=== PATIENT | male | born 1970 | race Caucasian/White ===

== ENCOUNTER 2025-05-25 12:56 | Emergency (ER) | payer BC, SELFPAY ==
[2025-05-25 12:59] VITALS: BP 157/100
[2025-05-25 13:07] VITALS: BP 153/103
--- NOTE | 2025-05-25 13:16 | ED.GENMED ---
History of Present Illness
<Tobias Atkinson DO - Last Filed: 05/25/25 13:18>
General
Chief Complaint: Abdominal Symptoms
Time Seen by Provider: 05/25/25 13:16
<Rosio To DO, Resident - Last Filed: 05/25/25 15:49>
General
Source: patient
Exam Limitations: none
History of Present Illness
History of Present Illness:
Patient is a 54-year-old male past medical history of diverticulitis presenting with left lower quadrant abdominal discomfort. Patient was treated for diverticulitis in March. Patient feels as though his symptoms did not completely resolve.
Patient saw his PCP who prescribed him dicyclomine. Patient has been taking it on and off for the last 3 weeks, with little to no relief. Patient describes the pain as a cramp on his left side as mild and comes and goes. Patient describes his
abdomen as 'tired'. Patient is concerned that his diverticulitis did not completely resolve and would like reimaging. Patient denies changes in bowel movements including diarrhea all other ROS.
Past History
<Tobias Atkinson DO - Last Filed: 05/25/25 13:18>
Past History
ED Past Medical History: GERD and Other (diverticulitis)
ED Past Surgical History: None
Social History
Tobacco: Non-smoker
Living: with family
Review of Systems
<Rosio To DO, Resident - Last Filed: 05/25/25 15:49>
Review of Systems
All Other Systems: ROS reviewed and negative except as documented in HPI and ROS
Constitutional: Reports no symptoms
EENT: Reports no symptoms
Respiratory: Reports no symptoms
Cardiac: Reports no symptoms
ABD/GI: Reports abdominal pain (LLQ)
: Reports no symptoms
Musculoskeletal: Reports no symptoms
Skin: Reports no symptoms
Neurological: Reports no symptoms
Endocrine: Reports no symptoms
Hematologic/Lymphatic: Reports no symptoms
Psychiatric: Reports no symptoms
Phy Exam
<Rosio To DO, Resident - Last Filed: 05/25/25 15:49>
General Physical Exam
General Presentation: well appearing and no apparent distress
General age: appears stated age
General Skin: warm and dry
General Habitus: normal
General Mental: alert
Cardiovascular Exam
Cardiovascular Exam: regular rate/rhythm
Heart Sounds: normal
Pulmonary Exam
Pulmonary Exam: lungs clear and no respiratory distress
Gastrointestinal Exam
Gastrointestinal Exam: normal bowel sounds, soft and tender (Very mild tenderness appreciated in lower left quadrant)
Neurological Exam
Neurological Exam: alert and oriented x3
Musculoskeletal Exam
Musculoskeletal Exam: full ROM
Skin Exam
Skin Exam: normal color and warm/dry
Psychiatric Exam
Psychiatric Exam: normal mood/affect
Course
<Tobias Atkinson DO - Last Filed: 05/25/25 13:18>
Orders/Labs/Results
Orders:
Orders
05/25/25 13:17
Urinalysis Reflex To Culture Urgent
Date Specimen was Collected: 05/25/25
Time Specimen was Collected: 15:10
05/25/25 13:35
CT Abd/pelvis W Iv Cont Urgent
Comment:
Reason For Exam: L pain concern for diverticulitis
05/25/25 14:23
Complete Blood Count/With Diff Urgent
Comprehensive Metabolic Panel Urgent
Lipase Urgent
05/25/25 15:37
Amoxicillin 875 mg/Clav 125 mg [Augmentin 875 mg/125 mg] 1 tablet PO NOW STA
Abnormal Lab Results
05/25/25
14:23
MCH 31.7 H pg
(27.0-31.0)
Immature Gran % 0.6 H %
(0-0.5)
Calcium 10.3 H mg/dl
(8.4-10.2)
Total Protein 8.7 H g/dl
(6.3-8.2)
Albumin 5.3 H g/dl
(3.5-5.0)
05/25/25 14:23
05/25/25 14:23
Vital Signs
Initial and Last Documented VS:
Initial Vital Signs
Temp Pulse Resp BP Pulse Ox
98.6 F 91 17 157/100 99
05/25/25 12:59 05/25/25 12:59 05/25/25 12:59 05/25/25 12:59 05/25/25 12:59
Last Documented Vital Signs
Temp Pulse Resp BP Pulse Ox
98.6 F 91 17 157/100 99
05/25/25 12:59 05/25/25 12:59 05/25/25 12:59 05/25/25 12:59 05/25/25 13:18
<Rosio To DO, Resident - Last Filed: 05/25/25 15:49>
Orders/Labs/Results
Orders:
Orders
05/25/25 13:17
Urinalysis Reflex To Culture Urgent
Date Specimen was Collected: 05/25/25
Time Specimen was Collected: 15:10
05/25/25 13:35
CT Abd/pelvis W Iv Cont Urgent
Comment:
Reason For Exam: L pain concern for diverticulitis
05/25/25 14:23
Complete Blood Count/With Diff Urgent
Comprehensive Metabolic Panel Urgent
Lipase Urgent
05/25/25 15:37
Amoxicillin 875 mg/Clav 125 mg [Augmentin 875 mg/125 mg] 1 tablet PO NOW STA
Abnormal Lab Results
05/25/25
14:23
MCH 31.7 H pg
(27.0-31.0)
Immature Gran % 0.6 H %
(0-0.5)
Calcium 10.3 H mg/dl
(8.4-10.2)
Total Protein 8.7 H g/dl
(6.3-8.2)
Albumin 5.3 H g/dl
(3.5-5.0)
05/25/25 14:23
05/25/25 14:23
Vital Signs
Initial and Last Documented VS:
Initial Vital Signs
Temp Pulse Resp BP Pulse Ox
98.6 F 91 17 157/100 99
05/25/25 12:59 05/25/25 12:59 05/25/25 12:59 05/25/25 12:59 05/25/25 12:59
Last Documented Vital Signs
Temp Pulse Resp BP Pulse Ox
98.6 F 91 17 157/100 99
05/25/25 12:59 05/25/25 12:59 05/25/25 12:59 05/25/25 12:59 05/25/25 13:18
<Rosio To DO, Resident - Last Filed: 05/25/25 15:49>
MDM/Problems Addressed
Differential Diagnosis Includes:
Diverticulitis, diverticulosis
MDM/Problems Addressed:
Labs unremarkable
CT AP reveals mild diverticulitis in the left pelvis, near the junction of the descending colon and the sigmoid colon. No evidence for abscess. No evidence for free intraperitoneal air.
Will discharge patient home with Augmentin.
<Tobias Atkinson DO - Last Filed: 05/25/25 13:18>
*Pulse Oximetry
SaO2: 99
Oxygen Mode of Delivery: Room air
<Rosio To DO, Resident - Last Filed: 05/25/25 15:49>
*Pulse Oximetry
Patient hypoxic: no
*Critical Care Note
Total Time (30-74mins, 75-104mins- exclusive of procedures): Not Applicable
ED Attending Note
<Tobias Atkinson, DO - Last Filed: 05/25/25 13:18>
-
Portions of this chart may have been created with voice recognition software.� Occasional wrong word or��sound alike� substitutions may have occurred due to the inherent limitations of voice recognition software.
Discharge Plan
Departure
Patient Disposition: Home (Routine Discharge)
Date of Disposition: 05/25/25
Time of Disposition: 15:48
Patient with high blood pressure during this ER visit?: Yes
Discharge Problem:
Diverticulitis
Instructions: Diverticulitis, BLOOD PRESSURE
Prescriptions:
New
amoxicillin-pot clavulanate 875-125 mg tablet
1 tab PO BID Qty: 19 0RF
No Action
sertraline 25 MG tablet
25 mg PO DAILY
Prilosec
PO BID
hydrocodone-acetaminophen 5 MG/500 MG tablet
1 tab PO Q4HPRN PRN (Reason: pain) Qty: 30 0RF
amoxicillin-pot clavulanate 875 MG/125 MG tablet
1 tab PO Q12 Qty: 14 0RF
ibuprofen 600 MG tablet
600 mg PO Q6 PRN (Reason: pain) Qty: 20 0RF
Referrals:
Contreras Harrington MD [Family Provider, Family Practice]
Activity Restrictions/Additional Instructions:
Please take Augmentin 1 pill twice daily with a meal for 10 days. Please follow up with you GI and PCP.
Interventions
Interventions:
*Risk Screen - Suicide Last Done: 05/25/25 13:00
*General Assessment Last Done: 05/25/25 13:00
*Neglect/Abuse Screening Last Done: 05/25/25 13:00
*ED COVID-19 Vaccine History Last Done: 05/25/25 13:00
Discharge Date and Time
Print Language: LITHUANIAN
[2025-05-25 14:00] VITALS: BP 139/106
[2025-05-25 14:17] VITALS: BMI 28.5
[2025-05-25 14:36] LABS: Hematocrit 43.4 % (39.0-52.0); Hemoglobin 15.3 g/dL (13.0-18.0); Mean Corp Hgb Conc. 35.3 g/dL (33.0-37.0); Mean Corpuscular Volume 89.9 fL (80.0-94.0); Nucleated Red Blood Cells % 0 % (-); Platelet Count 254 10^3/uL (130-400); Red Cell Dist. Width 12.6 % (11.5-14.5)
[2025-05-25 14:59] LABS: ALT (SGPT) 40 U/L (0-50); AST (SGOT) 27 U/L (17-59); Albumin 5.3 g/dl (3.5-5.0); Alkaline Phosphatase 71 U/L (38-126); Blood Urea Nitrogen 15 mg/dl (9-20); Calcium 10.3 mg/dl (8.4-10.2); Carbon Dioxide 26 mmol/L (22-30); Chloride 106 mmol/L (98-107); Estimated Creatinine Clearance 103 ml/min; Glucose 97 mg/dl (70-99); Lipase 67 U/L (23-300); Potassium 5.0 mmol/L (3.5-5.1); Sodium 139 mmol/L (135-145); Total Protein 8.7 g/dl (6.3-8.2); eGFR > 60.00
[2025-05-25] MEDS: AUGMENTIN 875 MG/125 MG 1 TABLET PO (15:45)
[2025-05-25 16:03] LABS: Urine Character Clear (Clear)
[2025-05-25 16:22] LABS: Urine Red Blood Cell 0-2 /HPF (0-2); Urine Squamous Cell 0-2 /LPF (Few); Urine White Cell 0-2 /HPF (0-5)
== END 2025-05-25 16:51 | disposition home or self-care (01) ==
LOC: EMR 12:56
PROVIDERS: EMERGENCY PHYSICIAN Emergency Medicine; FAMILY PHYSICIAN Family Medicine
DX: K57.32 Diverticulitis of large intestine without perforation or abscess without bleeding (principal); K21.9 Gastro-esophageal reflux disease without esophagitis
CPT/HCPCS: 99284; 74177; 80053; 81003; 81015; 83690; 85025; Q9967

== ENCOUNTER 2025-06-24 12:03 | Emergency (ER) | payer BC, SELFPAY ==
[2025-06-24 12:05] VITALS: BP 146/94
[2025-06-24 12:56] LABS: Hematocrit 42.0 % (39.0-52.0); Hemoglobin 14.7 g/dL (13.0-18.0); Mean Corp Hgb Conc. 35.0 g/dL (33.0-37.0); Mean Corpuscular Volume 89.6 fL (80.0-94.0); Nucleated Red Blood Cells % 0 % (-); Platelet Count 241 10^3/uL (130-400); Red Cell Dist. Width 12.7 % (11.5-14.5)
[2025-06-24 12:59] VITALS: BMI 29.5
--- NOTE | 2025-06-24 13:06 | ED.GENMED ---
History of Present Illness
General
Chief Complaint: Abdominal Pain
Source: patient
Exam Limitations: none
Time Seen by Provider: 06/24/25 12:56
Nursing documentation reviewed up to this point in time: agreed with
History of Present Illness
History of Present Illness:
54-year-old male presents with very mild abdominal symptoms no nausea no vomitingSimilar to when he had diverticulitis before once required Cipro Flagyl another time took Augmentin, No fevers no dysuria no frequency again symptoms are very mild is
concerned this could still be going on think he needs a CAT scan
Past History
Past History
ED Past Medical History: GERD and Other (diverticulitis)
ED Past Surgical History: None
Social History
Tobacco: Non-smoker
Living: with family
Review of Systems
Review of Systems
All Other Systems: ROS reviewed and negative except as documented in HPI and ROS
Constitutional: Denies fever or fatigue
EENT: Reports no symptoms
Respiratory: Reports no symptoms
Cardiac: Reports no symptoms
ABD/GI: Reports abdominal pain (very mild); Denies nausea or vomiting
Phy Exam
Physical Exam
Physical Exam:
Physical Exam
General: no apparent distress, not acutely ill
Neck: ncat
Heart: s1/s2 regular rate and rhythm, no murmur. equal radial pulses.
Lungs: no acute respiratory distress. clear bilaterally
Abdomen: not tender.
Neuro: alert and oriented. no focal neurological deficits
Skin: no rash
Psychiatric: well kept. interactive and cooperative
Extremities: no edema.
Course
Orders/Labs/Results
Orders:
Orders
06/24/25 12:49
Complete Blood Count/With Diff Urgent
Comprehensive Metabolic Panel Urgent
06/24/25 13:05
CT Abd/pelvis W Iv Cont Urgent
Comment:
Reason For Exam: abd pain diverticulitis
Abnormal Lab Results
06/24/25
12:49
WBC 4.7 L 10^3/uL
(4.8-10.8)
RBC 4.69 L 10^6/uL
(4.70-6.10)
MCH 31.3 H pg
(27.0-31.0)
06/24/25 12:49
06/24/25 12:49
Vital Signs
Initial and Last Documented VS:
Initial Vital Signs
Temp Pulse Resp BP Pulse Ox
98.3 F 89 16 146/94 698
06/24/25 12:06/24/25 12:05 06/24/25 12:05 06/24/25 12:05 06/24/25 12:05
Last Documented Vital Signs
Temp Pulse Resp BP Pulse Ox
98.3 F 89 16 87/59 99
06/24/25 12:05 06/24/25 12:05 06/24/25 12:05 06/24/25 14:00 06/24/25 14:00
MDM/Problems Addressed
Differential Diagnosis Includes:
Diverticulitis nonspecific abdominal pain appendicitis psychosomatic
Chronic conditions affecting care:
Abdominal symptoms mild
*Radiology
Radiology exam reviewed: radiology read reviewed
*Pulse Oximetry
SaO2: 97
Oxygen Mode of Delivery: Room air
Patient hypoxic: no
*Critical Care Note
Total Time (30-74mins, 75-104mins- exclusive of procedures): Not Applicable
Update Note
Update Note:
[address] noted labs noted I do not see any indication for more antibiotics
ED Attending Note
-
Portions of this chart may have been created with voice recognition software.� Occasional wrong word or��sound alike� substitutions may have occurred due to the inherent limitations of voice recognition software.
Discharge Plan
Departure
Patient Disposition: Home (Routine Discharge)
Date of Disposition: 06/24/25
Time of Disposition: 15:58
Patient with high blood pressure during this ER visit?: No
Condition: Good
Discharge Problem:
Normal abdominal exam
Instructions: Spring diet
Prescriptions:
No Action
sertraline 25 MG tablet
25 mg PO DAILY
Prilosec
PO BID
hydrocodone-acetaminophen 5 MG/500 MG tablet
1 tab PO Q4HPRN PRN (Reason: pain) Qty: 30 0RF
amoxicillin-pot clavulanate 875 MG/125 MG tablet
1 tab PO Q12 Qty: 14 0RF
ibuprofen 600 MG tablet
600 mg PO Q6 PRN (Reason: pain) Qty: 20 0RF
amoxicillin-pot clavulanate 875-125 mg tablet
1 tab PO BID Qty: 19 0RF
Referrals:
Contreras Harrington MD [Family Provider, Family Practice]
Interventions
Interventions:
*Risk Screen - Suicide Last Done: 06/24/25 12:05
*Neglect/Abuse Screening Last Done: 06/24/25 12:05
KF-Zymffg-Rbkokwhutd Assessment Last Done: 06/24/25 12:59
Discharge Date and Time
Print Language: YAKUT
[2025-06-24 13:13] VITALS: BP 132/92
[2025-06-24 13:20] LABS: ALT (SGPT) 32 U/L (0-50); AST (SGOT) 28 U/L (17-59); Albumin 5.0 g/dl (3.5-5.0); Alkaline Phosphatase 58 U/L (38-126); Blood Urea Nitrogen 9 mg/dl (9-20); Calcium 9.8 mg/dl (8.4-10.2); Carbon Dioxide 28 mmol/L (22-30); Chloride 106 mmol/L (98-107); Estimated Creatinine Clearance 119 ml/min; Glucose 91 mg/dl (70-99); Potassium 4.1 mmol/L (3.5-5.1); Sodium 140 mmol/L (135-145); Total Protein 7.9 g/dl (6.3-8.2); eGFR > 60.00
[2025-06-24 14:00] VITALS: BP 87/59
[2025-06-24 16:22] VITALS: BP 134/95
== END 2025-06-24 16:33 | disposition home or self-care (01) ==
LOC: EMR 12:03
PROVIDERS: EMERGENCY PHYSICIAN Emergency Medicine; FAMILY PHYSICIAN Family Medicine
DX: R10.9 Unspecified abdominal pain (principal); Z87.19 Personal history of other diseases of the digestive system
CPT/HCPCS: 99284; 74177; 80053; 85025; Q9967

== ENCOUNTER 2025-09-16 06:18 | Day surgery (SDC) | payer BC, SELFPAY | END 2025-09-16 11:15 | disposition home or self-care (01) | LOC: GI 06:18 | PROVIDERS: ATTENDING PHYSICIAN Internal Medicine Gastroenterology | DX: Z12.11 Encounter for screening for malignant neoplasm of colon (principal); D12.3 Benign neoplasm of transverse colon; K63.5 Polyp of colon; K57.30 Diverticulosis of large intestine without perforation or abscess without bleeding; K62.89 Other specified diseases of anus and rectum; Z86.0100 Personal history of colon polyps, unspecified; K29.50 Unspecified chronic gastritis without bleeding; K31.89 Other diseases of stomach and duodenum; R13.10 Dysphagia, unspecified; K22.89 Other specified disease of esophagus; K20.0 Eosinophilic esophagitis | CPT/HCPCS: 45385; 45380; 43239; 88305; 88342 ==